=== PATIENT | female | born 1990 ===

== ENCOUNTER 2017-12-23 10:32 | Emergency (ER) | payer SELFPAY ==
[2017-12-23] MEDS ORDERED: NS(*) 0.9% 1000 ML BAG 1,000 ML IV ONE ×2 (10:38→10:40)
[2017-12-23] MEDS ORDERED: CLINDAMYCIN 600 MG/4 ML 600 MG in NS(*) 0.9% 100 ML BAG 100 ML IVPB ONE (10:40)
[2017-12-23] MEDS ORDERED: ONDANSETRON 4 MG/2 ML VIAL IVP ONE (10:40)
[2017-12-23] MEDS ORDERED: ACETAMINOPHEN 500 MG TAB PO ONE (10:40)
[2017-12-23] MEDS ORDERED: CLINDAMYCIN(*) 600 MG/NS 50 ML 50 ML IVPB ONE (10:50)
[2017-12-23 11:03] LABS: PLATELET COUNT, AUTOMATED 224 K/uL (150-450)
--- NOTE | 2017-12-23 11:10 | ER Report ---
History and Physical Time Seen By MD: 10:42 Hx. of Stated Complaint: PT WAS SEEN AT [facility] YESTERDAY AND WASA TREATED FOR A UTI. PAIN IS WORSE, PT HAS THE CHILLS, IS NAUSEOUS. HPI/ROS CHIEF COMPLAINT: Increased frequency pain with urination flank pain HISTORY OF PRESENT ILLNESS: 27-year-old female otherwise healthy comes emergency Department after multiple days of increased frequency and burning and pain urination. Patient states her last is also been having fever has not taken her temperature but feels hot and has chills patient states that the pain has become migratory and moving up to the left flank area patient has nausea several pulses emesis last night no chest pain mild cough nonproductive no additional complaints noted REVIEW OF SYSTEMS: Respiratory: No cough, no dyspnea. Cardiovascular: No chest pain, no palpitations. Gastrointestinal: Abdomen with abdominal pain left flank Musculoskeletal: No back pain. Remainder of the 14 system rev: Yes Allergies: Coded Allergies: No Known Drug Allergies (Unverified , 12/23/17) Reviewed Nurses Notes: Yes Old Medical Records Reviewed: Yes Constitutional Vital Sign - Last 24 Hours 12/23/17 10:36 Temp 100.9 Pulse 115 Resp 18 B/P (MAP) 117/71 Pulse Ox 95 O2 Delivery Room Air Intake and Output 12/23/17 12/23/17 12/24/17 15:00 23:00 07:00 Intake Total 1050 ml Balance 1050 ml Physical Exam General Appearance: The patient is alert, has no immediate need for airway protection and no current signs of toxicity. Appears ill Eyes: Pupils equal and round no injection. Respiratory: Chest is non tender, lungs are clear to auscultation. Cardiac: regular rate and rhythm [ ] Gastrointestinal: Percussive tenderness the left CVA area mild tenderness to palpation of the suprapubic region otherwise unremarkable exam Musculoskeletal: Neck: Neck is supple and non tender. Extremities have full range of motion and are non tender. Skin: No rashes or lesions. [ ] DIFFERENTIAL DIAGNOSIS: After history and physical exam differential diagnosis was considered for nephritis UTI Medical Decision Making Data Points Result Diagram: 12/23/17 1055 12/23/17 1055 Laboratory Hematology Test 12/23/17 10:47 12/23/17 10:55 12/23/17 11:37 Urine Color Yellow Urine Clarity Cloudy Urine pH 6.0 pH (4.8-9.5) Urine Specific Laurel 1.020 Urine Protein 30 mg/dL (NEGATIVE) Urine Glucose (UA) Negative mg/dL (NEGATIVE) Urine Ketones Trace mg/dL (NEGATIVE) Urine Blood Moderate (NEGATIVE) Urine Nitrite Negative (NEGATIVE) Urine Bilirubin Negative (NEGATIVE) Urine Urobilinogen 4.0 mg/dL (0.2-1.9) Urine Leukocyte Esterase Large (NEGATIVE) Urine RBC 52 /HPF (0-2/HPF) Urine WBC 548 /HPF (0-5/HPF) Urine WBC Clumps Many /HPF Urine Squamous Epithelial Cells Many /LPF (</=FEW) Urine Bacteria Negative /HPF (NONE-FEW) Urine Mucus Few /HPF (NONE-FEW) Red Blood Count 4.52 M/uL (4.17-5.56) Mean Corpuscular Volume 92.0 fL (80.0-96.0) Mean Corpuscular Hemoglobin 31.8 pg (26.0-33.0) Mean Corpuscular Hemoglobin Concent 34.6 g/dL (32.0-36.0) Red Cell Distribution Width 12.9 % (11.5-14.5) Mean Platelet Volume 7.2 fL (7.2-11.1) Neutrophils (%) (Auto) 89.4 % (39.4-72.5) Lymphocytes (%) (Auto) 4.3 % (17.6-49.6) Monocytes (%) (Auto) 6.0 % (4.1-12.4) Eosinophils (%) (Auto) 0.1 % (0.4-6.7) Basophils (%) (Auto) 0.2 % (0.3-1.4) Nucleated RBC Relative Count (auto) 0.0 /100WBC Neutrophils # (Auto) 12.8 K/uL (2.0-7.4) Lymphocytes # (Auto) 0.6 K/uL (1.3-3.6) Monocytes # (Auto) 0.9 K/uL (0.3-1.0) Eosinophils # (Auto) 0.0 K/uL (0.0-0.5) Basophils # (Auto) 0.0 K/uL (0.0-0.1) Nucleated RBC Absolute Count (auto) 0.00 K/uL Peripheral Blood Smear No Y/N Prothrombin Time 13.4 seconds (12.0-14.4) Prothromb Time International Ratio 1.02 Activated Partial Thromboplast Time 26 seconds (23-35) Sodium Level 139 mmol/L (137-145) Potassium Level 3.7 mmol/L (3.5-5.0) Chloride Level 103 mmol/L (98-107) Carbon Dioxide Level 25 mmol/L (22-31) Blood Urea Nitrogen 15 mg/dl (7-18) Creatinine 1.00 mg/dl (0.52-1.04) Glomerular Filtration Rate Calc > 60.0 Random Glucose 122 mg/dl (75-110) Calcium Level 9.4 mg/dl (8.4-10.2) Total Bilirubin 1.4 mg/dl (0.2-1.3) Aspartate Amino Transf (AST/SGOT) 31 U/L (0-35) Alanine Aminotransferase (ALT/SGPT) 40 U/L (0-56) Alkaline Phosphatase 96 U/L (0-126) Total Protein 8.0 g/dl (6.3-8.2) Albumin 4.7 g/dl (3.5-5.0) Lipase 47 U/L (23-300) Human Chorionic Gonadotropin, Quant < 2 mIU/ml Serum Alcohol < 10 mg/dl Lactate 0.8 mmol/L (0.7-2.1) Chemistry Test 12/23/17 10:47 12/23/17 10:55 12/23/17 11:37 Urine Color Yellow Urine Clarity Cloudy Urine pH 6.0 pH (4.8-9.5) Urine Specific [place]urel 1.020 Urine Protein 30 mg/dL (NEGATIVE) Urine Glucose (UA) Negative mg/dL (NEGATIVE) Urine Ketones Trace mg/dL (NEGATIVE) Urine Blood Moderate (NEGATIVE) Urine Nitrite Negative (NEGATIVE) Urine Bilirubin Negative (NEGATIVE) Urine Urobilinogen 4.0 mg/dL (0.2-1.9) Urine Leukocyte Esterase Large (NEGATIVE) Urine RBC 52 /HPF (0-2/HPF) Urine WBC 548 /HPF (0-5/HPF) Urine WBC Clumps Many /HPF Urine Squamous Epithelial Cells Many /LPF (</=FEW) Urine Bacteria Negative /HPF (NONE-FEW) Urine Mucus Few /HPF (NONE-FEW) White Blood Count 14.3 k/uL (4.5-11.0) Red Blood Count 4.52 M/uL (4.17-5.56) Hemoglobin 14.4 g/dL (12.0-16.0) Hematocrit 41.5 % (34.0-47.0) Mean Corpuscular Volume 92.0 fL (80.0-96.0) Mean Corpuscular Hemoglobin 31.8 pg (26.0-33.0) Mean Corpuscular Hemoglobin Concent 34.6 g/dL (32.0-36.0) Red Cell Distribution Width 12.9 % (11.5-14.5) Platelet Count 224 K/uL (150-450) Mean Platelet Volume 7.2 fL (7.2-11.1) Neutrophils (%) (Auto) 89.4 % (39.4-72.5) Lymphocytes (%) (Auto) 4.3 % (17.6-49.6) Monocytes (%) (Auto) 6.0 % (4.1-12.4) Eosinophils (%) (Auto) 0.1 % (0.4-6.7) Basophils (%) (Auto) 0.2 % (0.3-1.4) Nucleated RBC Relative Count (auto) 0.0 /100WBC Neutrophils # (Auto) 12.8 K/uL (2.0-7.4) Lymphocytes # (Auto) 0.6 K/uL (1.3-3.6) Monocytes # (Auto) 0.9 K/uL (0.3-1.0) Eosinophils # (Auto) 0.0 K/uL (0.0-0.5) Basophils # (Auto) 0.0 K/uL (0.0-0.1) Nucleated RBC Absolute Count (auto) 0.00 K/uL Peripheral Blood Smear No Y/N Prothrombin Time 13.4 seconds (12.0-14.4) Prothromb Time International Ratio 1.02 Activated Partial Thromboplast Time 26 seconds (23-35) Glomerular Filtration Rate Calc > 60.0 Calcium Level 9.4 mg/dl (8.4-10.2) Total Bilirubin 1.4 mg/dl (0.2-1.3) Aspartate Amino Transf (AST/SGOT) 31 U/L (0-35) Alanine Aminotransferase (ALT/SGPT) 40 U/L (0-56) Alkaline Phosphatase 96 U/L (0-126) Total Protein 8.0 g/dl (6.3-8.2) Albumin 4.7 g/dl (3.5-5.0) Lipase 47 U/L (23-300) Human Chorionic Gonadotropin, Quant < 2 mIU/ml Serum Alcohol < 10 mg/dl Lactate 0.8 mmol/L (0.7-2.1) Coagulation Test 12/23/17 10:55 Prothrombin Time 13.4 seconds Prothromb Time International Ratio 1.02 Activated Partial Thromboplast Time 26 seconds Toxicology Test 12/23/17 10:55 Serum Alcohol < 10 mg/dl Urinalysis Test 12/23/17 10:47 Urine Color Yellow Urine Clarity Cloudy Urine pH 6.0 pH (4.8-9.5) Urine Specific [place]urel 1.020 Urine Protein 30 mg/dL (NEGATIVE) Urine Glucose (UA) Negative mg/dL (NEGATIVE) Urine Ketones Trace mg/dL (NEGATIVE) Urine Blood Moderate (NEGATIVE) Urine Nitrite Negative (NEGATIVE) Urine Bilirubin Negative (NEGATIVE) Urine Urobilinogen 4.0 mg/dL (0.2-1.9) Urine Leukocyte Esterase Large (NEGATIVE) Urine RBC 52 /HPF (0-2/HPF) Urine WBC 548 /HPF (0-5/HPF) Urine WBC Clumps Many /HPF Urine Squamous Epithelial Cells Many /LPF (</=FEW) Urine Bacteria Negative /HPF (NONE-FEW) Urine Mucus Few /HPF (NONE-FEW) ED Course/Re-evaluation ED Course ED clinical course [age] female presented with left flank and urinary tract complaints consistent with a Michel white count was elevated left shift consistent urinalysis evaluation shows elevated leukoesterase and elevate a white count she tolerated fluids in a dose of IV antiemetics and fluids she's feeling much better she has normal Adriano E she safe for discharge and outpatient care with a diagnosis of pyonephritis Decision to Disposition Date: Dec 23, 2017 Decision to Disposition Time: 12:20 Depart Departure Latest Vital Signs Vital Signs Date Time Temp Pulse Resp B/P (MAP) Pulse Ox O2 Delivery O2 Flow Rate FiO2 12/23/17 10:36 100.9 115 18 117/71 95 Room Air Impression: Primary Impression: Pyelonephritis Condition: Improved Disposition: HOME OR SELF-CARE Referrals: TERESA SHEIKH MD 5 Days New Scripts Sulfamethoxazole/Trimet 800-160 Mg Tab (BACTRIM DS TABLET) 1 Each Tablet 1 TAB PO Q12H, #14 MG 0 Refills TAKE ONE TABLET BY MOUTH EVERY TWELVE HOURS Prov: DEB PAYNE MD 12/23/17 Patient Instructions: Urinary Tract Infection in Women (DC) DEB PAYNE MD Dec 23, 2017 11:09
[2017-12-23 11:19] LABS: INR 1.02
[2017-12-23] MEDS ORDERED: SULF-198 PO (12:21)
[2017-12-23 13:00] VITALS: BP 109/75
== END 2017-12-23 13:15 | disposition home or self-care (01) ==
LOC: ER 10:40
DX: N12 Tubulo-interstitial nephritis, not specified as acute or chronic (principal); R68.83 Chills (without fever); R10.32 Left lower quadrant pain
CPT/HCPCS: 36415; 80320; 81001; 83605; 83690; 84702; 85025; 85610; 85730; 87088; 96361; 96365; 96375; 99284; J2405; J3490; J7030; 82040; 82247; 82310; 82374; 82435; 82565; 82947; 84075; 84132; 84155; 84295; 84450; 84460; 84520; 87077; 87186